=== PATIENT | female | born 1965 | race Two or more races ===

== ENCOUNTER 2020-10-24 21:03 | Emergency (ER) | payer OTHER ==
[~2020-10-24] VITALS: Ht 162.6 cm; Wt 104.3 kg
--- NOTE | 2020-10-24 21:12 | NUR ---
Pt reports L Epistaxes x3 hrs ago. Pt denies trauma or FINNEY at this time. Pt has no c/o N/V. Pt has Hx hypothroidism, and varicose veins. Pt AxO x4.
[2020-10-24 21:14] VITALS: BP 184/98
[2020-10-24] MEDS ORDERED: Oxymetazoline 0.05% Na Spray 30ml NASAL ONE (21:45)
[2020-10-24 22:20] LABS: BASOPHILS % (AUTO) 1.1 % (0.0-2.0); EOSINOPHILS % (AUTO) 1.7 % (0.0-3.0); HEMATOCRIT 41.9 % (37.0-47.0); HEMOGLOBIN 14.2 G/DL (12.0-16.0); LYMPHOCYTES % (AUTO) 37.3 % (20.0-45.0); MEAN CORPUSCULAR VOLUME 88 FL (80-99); MONOCYTES % (AUTO) 5.8 % (1.0-10.0); NEUTROPHILS % (AUTO) 54.1 % (45.0-75.0); PLATELET COUNT 323 K/UL (150-450); RED BLOOD COUNT 4.76 M/UL (4.20-5.40); RED CELL DISTRIBUTION WIDTH 13.8 % (11.6-14.8); WHITE BLOOD COUNT 12.2 K/UL (4.8-10.8)
[2020-10-24 22:59] VITALS: BP 147/85
[2020-10-24] MEDS ORDERED: AUGMENTIN 875-1 EAC1 ORAL (23:05)
--- NOTE | 2020-10-24 23:05 | Emergency Room Report ---
History of Present Illness General Chief Complaint: Nosebleed Source: Patient Present Illness HPI 55-year-old female with past medical history of hypertension presents emergency department with epistaxis x3 hours. She admits to picking her nose which caused the bleeding. She denies blood thinner use, Shortness of breath, nausea, vomiting, diarrhea, fever, headache, chills, weakness, facial trauma, bleeding disorder/coagulopathy, syncope, chest pain, cough, hematemesis or any other symptoms. Minimal blood loss on scene. The patient's symptoms were gradual onset, severity was moderate, duration since 3 hours. Quality: Bright red Past medical history: Hypertension Past surgical history: Denies Smoking: Denies Alcohol use: Denies Drug use: Denies Review of systems: CONST: No fevers or chills, No night sweats PULMONARY: No productive cough, No shortness of breath CARDIAC: No chest pain, No palpitations GI: No vomiting, No diarrhea , No melena_or_BRBPR : No dysuria, No hematuria, No discharge NEURO: No new_focal_weakness_or_numbness, No confusion, No vision changes 14 point Review of Systems is otherwise negative except per HPI Physical Exam: GENERAL: Awake_alert_ nontoxic, no acute distress Spo2 93% on RA -normal EYES: Extraocular muscles are intact. Conjunctivae clear. Lids without swelling ENT: External nose and ear normal_in_appearance. Oropharynx clear. Head_atraumatic, Moist_oral_mucosa Anterior nasal epistaxis has resolved. There is no blood dripping in the posterior pharynx. Airway is intact. No stridor, drooling, hoarse voice. NECK: No JVD. No meningismus. No thyromegaly. Supple. Trachea midline RESP: Normal respiratory effort. Symmetric rise. No stridor. Clear_to_auscultation_No_rales_No_wheezes CARDIAC: Regular rate and regular rhytm. No_significant pedal edema. ABDOMEN: Soft. Nondistended. Nontender_No_rebound_or_guarding. MSK: Normal muscle tone, without rigidity. Extremities without asymmetric deformity or swelling. SKIN: Warm and dry. No visible cyanosis or pallor NEUROLOGIC: Alert, oriented x3. Motor_and_sensation_grossly_intact. No truncal ataxia. Gait_normal Psych: Normal mood and affect, normal judgment and insight - COORDINATION OF CARE Case was discussed with: Patient Any labs that were ordered were interpreted as part of the medical decision making: Medical Decision Making/Plan: Differential diagnosis includes but is not limited to the following: Anterior epistaxis versus posterior epistaxis versus rhinitis Patient is well-appearing and afebrile. No signs of respiratory compromise. According to previous ER doc, Dr Pierre, patient blew nose to expel clots from the right naris. Minor trickle of nosebleed visualized from the L anterior nares. No visualization of posterior epistaxis Afrin was instilled into the bilateral nares and direct pressure was applied to the nasal bridge by Dr Pierre. Full hemostasis was achieved with direct p ressure and Afrin by the time I resumed care at 2200. Patient was observed x2 hours with no recurrent bleeding CBC is unremarkable. No coagulopathy. No critical anemia. Patient was discharged with a bottle of Afrin to use as needed for repeat anterior epistaxis. Unfortunately, I was unable to provide nasal clip as the emergency department ran out of nasal clips due to eminent ER closure 10/31/20. I considered Rhino Rocket placement but ultimately did not use it secondary to hemostasis being achieved. Patient is hemodynamically stable on discharge. Airway is intact. Again no signs of posterior epistaxis. Strict return ER prec autions were discussed regarding recurrent large-volume anterior epistaxis. Advised no NSAID use. Pertinent results reviewed with the patient. Educated patient on the current treatment plan including the risk, benefits, and alternatives. I also discussed the extent and limitations of the current evaluation. The patient expressed understanding and agreement with plan. I recommend PMD follow-up within 1 to 2 days for referral to ENT. Also advised that the patient return to the emergency department as soon as possible if they experience any new, persistent, or worsening symptoms. Discharge papers were provided Allergies: Coded Allergies: No Known Allergies (Unverified , 10/24/20) COVID-19 Screening Contact w/high risk pt: No Experienced COVID-19 symptoms?: No COVID-19 Testing performed INSOLE AND HEEL STIFFENER: No Patient History Now: No Nursing Documentation-PMH Hx Cardiac Problems: No Hx Hypertension: No Hx Pacemaker: No Hx Asthma: No Hx COPD: No Hx Diabetes: No Hx Cancer: No Hx Gastrointestinal Problems: No Hx Dialysis: No History Of Psychiatric Problem: No Hx Neurological Problems: No Hx Cerebrovascular Accident: No Hx Seizures: No Physical Exam Vital Signs Date Time Temp Pulse Resp B/P (MAP) Pulse Ox O2 Delivery O2 Flow Rate FiO2 10/24/20 21:07 98.1 82 16 184/98 (126) 93 Room Air Sp02 EP Interpretation: reviewed, normal Medical Decision Making Diagnostic Impression: Primary Impression: Anterior epistaxis Last Vital Signs Date Time Temp Pulse Resp B/P (MAP) Pulse Ox O2 Delivery O2 Flow Rate FiO2 10/24/20 21:14 98.1 16 184/98 93 Room Air 10/24/20 21:07 82 Disposition: HOME, SELF-CARE Admit Decision Time: 23:04 Condition: Stable Scripts Amoxicillin/Potassium Clav 875-125* (AUGMENTIN 875-125 TABLET*) 1 Each Tablet 1 TAB ORAL TWICE A DAY for 5 Days, #10 TAB Prov: Gabrielle Richardson D.O. 10/24/20 Referrals: NON PHYSICIAN (PCP) Patient Instructions: Nosebleed Additional Instructions: Instructions for patient/caser in: Follow up with your physician in 1-2 days for referral to ENT within 2 to 3 days. Do not use Motrin, Advil, aspirin until cleared by your [facility] doctor to prevent recurrent bleeding. Do not pick your nose. Remove the nasal gauze in the morning (within 24 hrs). Follow-up with your doctor sooner if your condition requires a more timely clinical reevaluation. Return to the emergency department immediately if you feel that your condition is worsening or if you have any new or concerning symptoms. Review your discharge instructions and take any prescriptions given as instructed. [facility] PROVIDES FREE OR LOW-COST HEALTH SERVICES TO PEOPLE WHO CAN SHOW PROOF THAT THEY LIVE IN [facility]. TO FIND MORE CLINICS PARTNERED WITH THE [facility], [facility] TO PROVIDE SERVICE, PLEASE CALL . Gabrielle Richardson D.O. Oct 24, 2020 23:05
== END 2020-10-24 23:25 | disposition home or self-care (01) ==
LOC: EMR 21:36
DX: R04.0 Epistaxis (principal); I10 Essential (primary) hypertension
CPT/HCPCS: 36415; 85025; 85610; 85730; 99283